=== PATIENT | female | born 1995 | race Hispanic/Latino ===

== ENCOUNTER 2025-07-27 18:44 | Emergency (ER) | payer OTHER, SELFPAY ==
[2025-07-27 19:14] LABS: Hematocrit 37.2 % (37.0-47.0); Hemoglobin 12.2 g/dL (12.0-16.0); Mean Corp Hgb Conc. 32.8 g/dL (33.0-37.0); Mean Corpuscular Volume 93.9 fL (81.0-99.0); Nucleated Red Blood Cells % 0 %; Platelet Count 281 10^3/uL (130-400); Red Cell Dist. Width 11.5 % (11.5-14.5)
[2025-07-27 19:32] LABS: HCG, Serum Qualitative Screen Negative
[2025-07-27 19:36] LABS: ALT (SGPT) 11 U/L (0-35); AST (SGOT) 20 U/L (14-36); Albumin 4.8 g/dl (3.5-5.0); Alkaline Phosphatase 44 U/L (38-126); Blood Urea Nitrogen 11 mg/dl (7-17); Calcium 9.6 mg/dl (8.4-10.2); Carbon Dioxide 23 mmol/L (22-30); Chloride 106 mmol/L (98-107); Glucose 114 mg/dl (70-99); Potassium 3.4 mmol/L (3.5-5.1); Sodium 137 mmol/L (135-145); Total Protein 7.7 g/dl (6.3-8.2); eGFR > 60.00
[2025-07-27 19:43] LABS: Troponin I < 0.012 ng/ml
[2025-07-27 21:00] VITALS: BP 103/63
[2025-07-27 21:04] VITALS: BMI 22.4
--- NOTE | 2025-07-27 21:07 | EDRN ---
Pt was sitting on a bed watching a movie after eating. Pt says there is a cat at the house she is staying at and about 5 minutes after she ate, she felt her heart was racing, she couldn't breathe and she felt she was going to pass out. Pt also had
pressure in her head. Pt made herself vomit since she had just eaten and felt better after doing this. Pt concerned there was a cat hair in the food she ate. Pt says this happened couple times while she was waiting to come back to ED room. Pt
still has tight feeling in her chest. Heart no longer racing and pt feels she cannot relax. Pt did not take anything prior to coming to ED. Pt's main complaint is that she feels tired now. Pt says she has never had this type of reaction to a
cat. No sob, nausea, trouble swallowing/speaking.
[2025-07-27 22:00] VITALS: BP 115/70
--- NOTE | 2025-07-27 22:31 | ED.GENMED ---
History of Present Illness
General
Chief Complaint: Heart Rate Problem
Source: patient
Exam Limitations: none
Time Seen by Provider: 07/27/25 21:48
Nursing documentation reviewed up to this point in time: agreed with
History of Present Illness
History of Present Illness:
Patient is a 30-year-old healthy female who presents to the emergency department with chest tightness and palpitations. Patient states that earlier today she was sitting on the couch eating dinner when she felt a sensation of tightness in her mid
chest which traveled up to her throat. She then felt that her heart was beating quite fast and she became extremely anxious. She did experience shortness of breath during this time. Symptoms have been intermittent since. She came to the
emergency department for further evaluation.
By my evaluation�patient is essentially asymptomatic however states that when she takes a deep breath she does feel a sharp pain in her mid chest.
Patient denies any fever or viral symptoms including cough or sore throat. She denies any associated swelling of her tongue or lips. No rash. No radiation of pain into her back. She denies any lower extremity pain or swelling.
She thought she may be experiencing a panic attack, however does not have history of such.
No recent travel or recent surgeries. No exogenous hormone use. No personal or family history of blood clots/clotting disorders
Past History
Social History
Tobacco: Non-smoker
Alcohol: None
Drug: None
Review of Systems
Review of Systems
Allergies reviewed?: Yes
All Other Systems: ROS reviewed and negative except as documented in HPI and ROS
Phy Exam
Physical Exam
Physical Exam:
Vitals: Patient's vital signs are stable. Afebrile
General: Patient is well appearing, no acute distress. Nontoxic appearing
Skin: Warm and dry, no rashes or lesions
Head: Normocephalic, atraumatic
Eyes: Sclera nonicteric. No periorbital swelling.
Throat: No pharyngeal erythema. No uvular swelling or swelling of lips/tongue. Protecting airway
Neck: Normal ROM, no cervical spine tenderness, no meningismus
Cardiac: Regular rate and rhythm, no murmurs. No reproducible chest wall tenderness
Pulm: Normal respiratory effort. Lungs clear bilaterally
Abdomen: No abdominal tenderness.
Extremities: No evidence of cyanosis or edema. 2+ palpable DP pulses bilaterally
Neuro: AAOx3. Grossly intact.
Psychiatric: Normal affect.
Scores
PERC Rule Criteria
Age <50 years: Yes
HR <100 bpm: No
Room air oxygen sat >94%: Yes
History of DVT or PE: No
Recent trauma or surgery: No
Hemoptysis: No
Exogenous estrogen: No
Clinical signs suggestive of DVT: No
: No
Considered low risk for PE: Yes
PERC Score: 1
PE can be excluded by PERC: No
Course
Orders/Labs/Results
Orders:
Orders
07/27/25 18:51
Electrocardiogram (*1) Urgent
Reason for Study: Chest Pain
EKG- Treatment ONCE
Test Result ONCE
07/27/25 19:00
Complete Blood Count/With Diff Urgent
Comprehensive Metabolic Panel Urgent
HCG, Serum Qualitative Screen Urgent
Comment: Notify provider if positive test present
TSH Reflex To Free T4 Urgent
Comment: ADD ON
Troponin I Urgent
07/27/25 22:12
Electrocardiogram (*1) Urgent
Reason for Study: Chest Pain
EKG- Treatment ONCE
07/27/25 22:13
Add On- LAB Urgent
Tests Added?: TSH w/ reflex to T4
07/27/25 22:21
D-Dimer Urgent
Troponin I Urgent
Abnormal Lab Results
07/27/25
19:00
RBC 3.96 L 10^6/uL
(4.20-5.40)
MCHC 32.8 L g/dL
(33.0-37.0)
MPV 10.8 H fL
(7.4-10.4)
Potassium 3.4 L mmol/L
(3.5-5.1)
Glucose 114 H mg/dl
(70-99)
07/27/25 19:00
07/27/25 19:00
Vital Signs
Initial and Last Documented VS:
Initial Vital Signs
Pulse Resp BP Pulse Ox
65 16 103/63 100
07/27/25 21:00 07/27/25 21:00 07/27/25 21:00 07/27/25 21:00
Last Documented Vital Signs
Pulse Resp BP Pulse Ox
79 20 115/70 99
07/27/25 22:00 07/27/25 22:00 07/27/25 22:00 07/27/25 22:32
MDM/Problems Addressed
Differential Diagnosis Includes:
Not limited to: Panic attack, anxiety, hyperventilation, cardiac arrhythmia, hyperthyroidism, less likely acute cardiac/pulmonary process including pulmonary embolism or acute coronary syndrome, etc.
MDM/Problems Addressed:
30-year-old female with history as documented presenting after acute onset episode of intermittent chest tightness associated with shortness of breath and palpitations earlier this evening. The symptoms were not exertional in nature. Some
pleuritic component to chest pain. No associated lightheadedness, dizziness, rash, or oral swelling. Symptoms essentially improved by my evaluation.
Patient arrives with stable vital signs. On exam, patient is resting comfortably on her phone. She is in no distress. Cardio/pulmonary assessment unremarkable. She has no rash or reproducible chest wall tenderness. Peripheral pulses intact
without any clinical evidence of DVT on exam.
Prior to my evaluation basic labs were obtained without clinically significant abnormalities. Initial troponin undetectable. EKG reveals normal sinus rhythm at 100 bpm without evidence of arrhythmia or acute ischemia.
Symptoms seem most consistent with likely panic attack. No evidence to suggest allergic reaction. Very low suspicion for acute cardiac/pulmonary underlying cause however will trend troponin. Patient has no PE risk factors, her heart rate was 100
on arrival giving her a PERC of 1. Will screen with D-dimer. Will add on TSH.
Update: Repeat troponin undetectable and EKG remains without any acute ischemic findings. D-dimer was fortunately negative. Heart rate has normalized. She remains asymptomatic.
It seems the patient suffered a panic attack earlier today without any other evidence at this time consistent with more emergent etiology. I recommended chest x-ray for further evaluation however patient declines and is aware it may be missing
underlying diagnosis.
She is not suicidal or homicidal. She feels safe going home. I feel this is reasonable and advised very strict return precautions and primary care follow-up. Patient expressed verbal understanding.
Chronic conditions affecting care:
N/A
Acute Exacerbation and/or Progression of Chronic Illness:
N/A
*Pulse Oximetry
SaO2: 99
Oxygen Mode of Delivery: Room air
Patient hypoxic: no
*EKG
Interpreted by ED Provider?: Yes
EKG Intrepretation Date: 07/27/25
Interpretation: abnormal
Comparison EKG: no comparison EKG present
Heart Rate: 100
Rate: normal
Rhythm: sinus
[place]: normal axis
Interval: normal QT interval
QRS Pattern: normal QRS
Ischemia: no ischemia
*[employer] Interpretation
Rate: normal
Interpretation: normal
Heart Rate: 84
Rhythm: sinus
*Critical Care Note
Total Time (30-74mins, 75-104mins- exclusive of procedures): Not Applicable
ED Attending Note
-
Portions of this chart may have been created with voice recognition software.� Occasional wrong word or��sound alike� substitutions may have occurred due to the inherent limitations of voice recognition software.
Discharge Plan
Departure
Patient Disposition: Home (Routine Discharge)
Date of Disposition: 07/27/25
Time of Disposition: 23:37
Patient with high blood pressure during this ER visit?: No
Discharge Problem:
Palpitations, Chest tightness
Instructions: Palpitations (DC), Panic attack - ED (DC)
Prescriptions:
No Action
No Current Medications
0
Referrals:
Giovany Cox MD [Non-Admitting Privileges] - Follow up in 5-7 days
Activity Restrictions/Additional Instructions:
RETURN TO THE EMERGENCY DEPARTMENT WITH ANY CHEST TIGHTNESS/THROAT TIGHTNESS, SHORTNESS OF BREATH OR DIFFICULTY BREATHING, SEVERE BACK PAIN, NUMBNESS/TINGLING EXTREMITIES, WORSENING IN CURRENT SYMPTOMS, OR ANY OTHER CONCERNS
- As discussed�your lab work showed no acute abnormalities today in the emergency department. Your cardiac enzymes are negative. You declined a chest x-ray today.
- Please stay well-hydrated. Follow-up with your primary care provider for further evaluation/management
Monitor your symptoms closely and return to the emergency department with any acute worsening/new symptoms or any other concerns
Interventions
Interventions:
*Risk Screen - Suicide Last Done: 07/27/25 18:50
*General Assessment Last Done: 07/27/25 21:04
*Neglect/Abuse Screening Last Done: 07/27/25 18:50
*ED- Fall Risk Assessment Last Done: 07/27/25 21:04
*ED COVID-19 Vaccine History Last Done: 07/27/25 21:04
*ED Influenza Vaccine History Last Done: 07/27/25 21:04
*Nursing Disposition Last Done: 07/27/25 23:45
ED- Cardiac Assessment Last Done: 07/27/25 21:14
ED- Pulmonary Assessment Last Done: 07/27/25 21:14
Discharge Date and Time
Print Language: GEORGIAN
[2025-07-27 22:42] LABS: D-Dimer 0.46 ug/mlFEU (0.00-0.50)
[2025-07-27 22:53] LABS: Troponin I < 0.012 ng/ml
== END 2025-07-27 23:45 | disposition home or self-care (01) ==
LOC: EMR 18:44
PROVIDERS: Physician Assistant; Student in an Organized Health Care Education/Training Program; EMERGENCY PHYSICIAN Emergency Medicine
DX: R00.2 Palpitations (principal); R07.89 Other chest pain
CPT/HCPCS: 99283; 80053; 84443; 84484; 84703; 85025; 85379; 93005